=== PATIENT | male | born 1960 | race Caucasian/White ===

== ENCOUNTER → 2019-10-14 | Day surgery (SDC) | payer OTHER ==
[2019-10-10 16:32] LABS: BASOPHILS # (AUTO) 0.1 (0.0-0.1); BASOPHILS % 0.7 % (0.0-1.0); EOSINOPHILS # (AUTO) 0.3 (0.0-0.4); EOSINOPHILS % 3.7 % (0.0-6.0); HEMATOCRIT 41.5 % (38.2-49.6); LYMPHOCYTES # (AUTO) 2.3 (1.0-3.2); LYMPHOCYTES % 27.5 % (18.0-39.1); MEAN CORPUSCULAR HEMOGLOBIN 31.4 pg (28-32); MEAN CORPUSCULAR HGB CONC 33.7 g/dL (31-35); MONOCYTES # (AUTO) 0.9 (0.2-0.8); MONOCYTES % 10.2 % (4.4-11.3); NEUTROPHILS # (AUTO) 4.8 (2.1-6.9); NEUTROPHILS % 57.2 % (38.7-80.0); PLATELET COUNT 213 x10e3/uL (140-360); RED BLOOD COUNT 4.46 x10e6/uL (4.3-5.7); RED CELL DISTRIBUTION WIDTH 13.2 % (11.7-14.4)
--- NOTE | 2019-10-13 15:42 | Pre Op History & Physical ---
DATE OF SURGERY: October 14, 2019. CHIEF COMPLAINT: Chronic otitis externa with impaction of the wax in both ears. HISTORY OF PRESENT ILLNESS: This 59-year-old male has history of bilateral tinnitus. He was first seen in March 2019. He has bilateral decreased hearing. The patient has no vertigo. He has no surgery to the ear. The patient has some discomfort. No drainage from the ear. The patient at that time, was noted to have bilateral impaction of the wax in the ear. However, the patient cannot tolerate after two tries of removal of wax in the ear canal. However, the patient did not return until September of this year and wanted removal of the wax in the operating room. REVIEW OF SYSTEMS: System review showed no recent cardiovascular, respiratory, or GI problem. PAST MEDICAL HISTORY: The patient has a history of hypertension and CA of the prostate, which is being followed. PAST SURGICAL HISTORY: The patient denies any previous surgery. ALLERGIES: HE HAS NO KNOWN ALLERGY TO MEDICATION. MEDICATIONS: He is on atorvastatin, lisinopril, allopurinol, tamsulosin, vitamin D, and B12. SOCIAL HISTORY: He smokes a few cigarettes a day and is a nondrinker. FAMILY HISTORY: Noncontributory. PHYSICAL EXAMINATION: VITAL SIGNS: The patient's vital signs were within normal limits. HEENT: Ear exam show impaction of the wax in both ear. TM was not able to be seen. Hu test, the patient cannot hear the tuning fork. Nasal exam show deviated nasal septum of the right side about 40% with subluxation of septum to the left. Oropharynx and oral cavity show 2+ tonsils bilaterally with Mallampati level. NECK: Showed no lymph node or thyroid palpable. CHEST: Showed good air entry bilaterally. CARDIOVASCULAR: Showed S1, S2. No murmur noted. ASSESSMENT AND PLAN: Mr. Abdalla has wax impaction and otitis externa. The patient cannot tolerate removal of the wax in the office setting. The suggested treatment is examination under anesthesia and removal of impacted wax and other necessary procedure. Complication of procedure includes, but not limited to bleeding, infection, hearing loss, TM perforation, persistent drainage from the ear, persistent recurrence of the problem. Alternatives will be continue observation, continue antibiotic therapy, removal of the wax in the office setting. The patient has elected to undergo surgical procedure. MD CODY Pickens/JUANCARLOS /[id number]
[~2019-10-14] MED LIST: ALLOPURINOL300 MG PO; ATORVASTATIN CA10 MG PO; FENTANYL CITRATE/PF 100MCG/2 ML INJ ONE; FLOMAX0.4 MG PO; GLYCOPYRROLATE INJ 0.2 MG/ML VIAL ONE; LISINOPRIL40 MG PO; MIDAZOLAM HCL 2 MG/2 ML VIAL ONE; OFLOXACIN 0.3% (OTIC SOL) 5 ML BTL ONE; SEVOFLURANE INHAL SOLN 250 ML PEN BTL ONE; VITAMIN B-121000 MCG PO; VITAMIN D250 MC1 PO
--- NOTE | 2019-10-14 08:56 | Operative Report ---
DATE OF PROCEDURE: 10/14/2019 SURGEON: Chaka Hooper MD CHIEF COMPLAINT: Bilateral otitis externa and bilateral wax impaction. POSTOPERATIVE DIAGNOSIS: Bilateral otitis externa and bilateral wax impaction. PROCEDURE: Removal of wax in both ears with examination under anesthesia bilaterally. ANESTHESIA: Anesthesiology group. HISTORY OF PRESENT ILLNESS: This 59 years old male has decreased hearing on both ears, worse on the right side. The patient was noted to have impacted ear wax on both sides. He was initially seen in March of 2019. Attempt removal of the wax in the office was not successful because the patient cannot tolerate. The patient came back to the office after 6 months with similar problem. It was decided that examination under anesthesia and removal of wax and other necessary procedure will be beneficial for him. The patient was taken to the operating room, put under general anesthesia. Right ear was examined. Ear canal was debrided. A large amount of impacted cerumen was noted in the ear canal. This was removed. The canal was noted to be normal with normal TM. The TM was not disturbed. The left ear was examined. The ear canal was debrided. A large amount of cerumen again was noted on the left ear canal. This was removed. The ear canal was examined. Canal was noted to be normal with normal TM. The TM was not disturbed. The patient tolerated the above procedure well with no blood loss. He was able to be transferred to recovery room in stable condition. Chaka Hooper MD DKH/MODL /[id number]
[2019-10-14 09:30] VITALS: BP 114/58
--- NOTE | 2019-10-14 10:06 | NUR ---
SPIRITUAL CARE - Pre-Surgery Assessment: Pt in bed. Pt's at bedside. Pt reported supportive attention from family and friends. Intervention: Remittance Clerk provided pastoral presence, hospitality, prayer, and sympathetic listening. Acquainted pt with availability of pulp grinder and blender while hospitalized. Outcome: Pt expressed appreciation for visit. No need for follow up indicated at this time. ANETTE [facility] Department O: [phone]
--- NOTE | 2019-11-25 18:44 | Operative Report ---
DATE OF PROCEDURE: SURGEON: Chaka Hooper MD ADDENDUM: PREOPERATIVE DIAGNOSIS: Bilateral otitis externa with bilateral ear wax impaction. POSTOPERATIVE DIAGNOSIS: Bilateral otitis externa with bilateral ear wax impaction. OPERATIVE PROCEDURE: Examination under anesthesia bilaterally with removal of impacted wax in the ear. ANESTHESIA: Anesthesiology group. DESCRIPTION OF PROCEDURE: The patient was taken to the operating room. The operating microscope was brought in after the patient was put under general anesthesia. The right ear was examined. The impacted wax was noted in the ear canal. By using the operating microscope, suction and curette along with middle ear instruments were used to remove the earwax from the ear canal without causing any damage to the ear canal and TM. This was done with difficulty because the wax was quite impacted, that is the main reason the patient has to be taken to the operating room rather than do it in the office. With removal of the wax initially with a curette and also with the cup forceps and other middle ear instruments, the wax was loosened up enough that suction was able to be used to remove all the wax. The ear canal was examined. No abnormality was noted. Tympanic membrane was examined. No abnormality was noted. The left ear was examined. Again, the ear canal was noted to be impacted with wax. This was removed again with the curette, other middle ear instrument including the curve needle, the straight needle, and cup forceps and alligators. Using these instruments, the part of the wax was removed and loosened enough that the suction was able to be used, both the 5 and the 7-Finnish suction were used. Again, during this procedure, the care was taken that the ear canal and the TM were not disturbed. After the wax were removed, the ear canal was examined and the TM was noted to be intact. The ear canal was noted to have no other abnormality. The patient tolerated the above procedure well with minimal blood loss. He was able to be transferred to recovery room in stable condition. Chaka Hooper MD DK/MODL /[id number]
== END | disposition home or self-care (01) ==
LOC: OR 05:05
PROVIDERS: ATTEND Otolaryngology Otolaryngology/Facial Plastic Surgery
DX: H61.23 Impacted cerumen, bilateral (principal); H60.93 Unspecified otitis externa, bilateral; H90.3 Sensorineural hearing loss, bilateral; H65.20 Chronic serous otitis media, unspecified ear; I10 Essential (primary) hypertension; C61 Malignant neoplasm of prostate; R00.1 Bradycardia, unspecified; F17.210 Nicotine dependence, cigarettes, uncomplicated; Z01.810 Encounter for preprocedural cardiovascular examination; Z01.812 Encounter for preprocedural laboratory examination; Z11.59 Encounter for screening for other viral diseases
CPT/HCPCS: 36415; 69210; 85025; 93005; J2250; J3010; U0002